=== PATIENT | male | born 1980 | race Caucasian/White ===

== ENCOUNTER 2019-10-03 15:42 | Inpatient (IN) | payer BC ==
[2019-10-03] MEDS ORDERED: ONDANSETRON 4 MG/2 ML VIAL ONE (16:28)
--- NOTE | 2019-10-03 17:35 | RAD REPORT ---
EXAM DESCRIPTION: US - Abdomen Exam Limited - 10/03/2019 5:18 pm CLINICAL HISTORY: Abdominal pain. COMPARISON: 2013 FINDINGS: The gallbladder wall is not thickened. A gallstone is not seen. A 5 millimeter echogenic structure is adherent to the gallbladder wall. No posterior shadowing seen Common bile duct was not well visualized but probably is within normal limits Liver has an increased echotexture consistent with fatty infiltration IMPRESSION: Fatty liver 5 millimeter echogenic structure within the gallbladder probably a polyp. Followup ultrasound in 1 ye ar recommended to assess stability
[2019-10-03 17:42] LABS: Absolute Lymphocytes (CBC) 1.4 K/uL (0.7-4.9); Basophils % 1.3 % (0-1.3); Hematocrit 41.3 % (39.6-49.0); Lymphocytes % 16.1 % (15.3-44.8); MPV 9.5 fL (7.6-11.3)
[2019-10-03 17:45] LABS: Protime INR 1.24
[2019-10-03 17:57] LABS: Blood Morphology Comment NOT SEEN (NOT SEEN); Platelet Estimate DECR; Urine White Blood Cell Casts OK
[2019-10-03 18:02] LABS: ALT/SGPT 149 U/L (12-78); Alkaline Phosphatase 287 U/L (45-117); BUN Blood Urea Nitrogen 8 mg/dL (7-18); Bicarbonate 27 mmol/L (21-32); Bilirubin Direct 4.9 mg/dL (0-0.2); Glucose Level 117 mg/dL (74-106); Lipase 284 U/L (73-393); Protein, Total 7.2 g/dL (6.4-8.2); Sodium Level 135 mmol/L (136-145)
[2019-10-03 18:16] LABS: Magnesium 1.9 mg/dL (1.8-2.4); Potassium 3.3 mmol/L (3.5-5.1)
[2019-10-03 18:18] LABS: AST/SGOT 357 U/L (15-37); Bilirubin Total 6.4 mg/dL (0.2-1.0)
[2019-10-03] MEDS ORDERED: NA CHLORIDE 0.9% 1,000 ML ONE (18:28)
--- NOTE | 2019-10-03 18:29 | ER ---
Nurse's Notes [facility] Name: Jareth Gordon Age: 39 yrs Sex: Male : 1980 Arrival Date: 10/03/2019 Time: 15:47 Bed 19 Private MD: Kim Elizalde K Diagnosis: Liver disease, unspecified Presentation: 10/03 15:50 Presenting complaint: Patient states: "I have the shakes, nausea, diarrhea and jl7 dizziness." x [address] Elizalde sent pt with note that states "Acute nausea/ decreased eating/ tremors/ vertigo/ jaundice/ hx of alcoholism/ please evaluate and treat in ER." Pt reports drinking 2 bottles of wine/day last drink was this morning 10 oz "to calm the shaking down.". Transition of care: patient was not received from another setting of care. Onset of symptoms was September 23, 2019. Risk Assessment: Do you want to hurt yourself or someone else? Patient reports no desire to harm self or others. Initial Sepsis Screen: Does the patient meet any 2 criteria? No. Patient's initial sepsis screen is negative. Does the patient have a suspected source of infection? No. Patient's initial sepsis screen is negative. Care prior to arrival: None. 15:50 Method Of Arrival: Ambulatory [facility] 15:50 Acuity: RICKEY 2 jl7 Historical: - Allergies: 16:01 No Known Allergies; jl7 - Home Meds: 16:01 losartan-hydrochlorothiazide Oral [Active]; Paxil 30 mg oral tab [Active]; melatonin 10 jl7 mg Oral cap [Active]; - PMHx: 16:01 Anxiety; Depression; Hypertension; Alcoholism; jl7 - PSHx: 16:01 None; jl7 - Immunization history:: Adult Immunizations not up to date. - Social history:: Smoking status: Patient uses tobacco products, chewing tobacco, Patient uses alcohol, on a daily basis. - Ebola Screening: : No symptoms or risks identified at this time. Screenin:10 Abuse screen: Denies threats or abuse. Denies injuries from another. Nutritional ca1 screening: No deficits noted. Tuberculosis screening: No symptoms or risk factors identified. Fall Risk None identified. Assessment: 16:10 General: Appears in no apparent distress. comfortable, Behavior is calm, cooperative, ca1 appropriate for age. General: Reports tremors and shaking for several days. Happened 2 years before. Pt reported he drinks 2 bottles of wine per day and he switched from hard drinks to wine. . Pain: Denies pain. Neuro: Level of Consciousness is awake, alert, obeys commands, Oriented to person, place, time, situation. Cardiovascular: Heart tones S1 S2 present Capillary refill < 3 seconds Patient's skin is warm and dry. Respiratory: Airway is patent Respiratory effort is even, unlabored, Respiratory pattern is regular, symmetrical, Breath sounds are clear bilaterally. GI: Abdomen is round non-distended, Bowel sounds present X 4 quads. Abd is soft and non tender X 4 quads. Reports nausea, vomiting. : No deficits noted. No signs and/or symptoms were reported regarding the genitourinary system. EENT: Sclera/Cornea sclerae icteric. Derm: Skin is intact, is healthy with good turgor, Skin is dry, Skin is pink, warm \\T\\ dry. Skin temperature is warm. Musculoskeletal: Circulation, motion, and sensation intact. Capillary refill < 3 seconds, Range of motion: intact in all extremities. 17:22 Reassessment: Patient appears in no apparent distress at this time. Patient is alert, ca1 oriented x 3, equal unlabored respirations, skin warm/dry/pink. Pt back from ultrasound. 18:25 Reassessment: YANG Roque notified of critical lab values AST 357 and Total Bili ss 6.4. 18:39 Reassessment: Patient appears in no apparent distress at this time. Patient is alert, ca1 oriented x 3, equal unlabored respirations, skin warm/dry/pink. 19:30 Reassessment: Patient appears in no apparent distress at this time. Patient and/or wh family updated on plan of care and expected duration. Pain level reassessed. Patient is alert, oriented x 3, equal unlabored respirations, skin warm/dry/pink. 20:40 Reassessment: Patient appears in no apparent distress at this time. No changes from previously documented assessment. Patient and/or family updated on plan of care and expected duration. Pain level reassessed. Patient is alert, oriented x 3, equal unlabored respirations, skin warm/dry/pink. MD at bedside explaining POC. Vital Signs: 16:01 BP 119 / 80; Pulse 69; Resp 17 S; Temp 98.3(O); Pulse Ox 100% on R/A; Weight 83.01 kg jl7 (R); Height 5 ft. 9 in. (175.26 cm) (R); Pain 0/10; 17:00 BP 123 / 78; Pulse 73; Resp 16 S; Pulse Ox 97% on R/A; ca1 18:00 BP 125 / 83; Pulse 64; Resp 18 S; Pulse Ox 99% on R/A; ca1 19:30 BP 124 / 78; Pulse 76; Resp 18; Pulse Ox 98% on R/A; wh 20:45 BP 121 / 69; Pulse 76; Resp 18; Pulse Ox 100% ; wh 16:01 Body Mass Index 27.02 (83.01 kg, 175.26 cm) jl7 ED Course: 15:47 Patient arrived in ED. as 15:48 Kim Elizalde MD is Private Physician. as 15:58 Triage completed. jl7 16:01 Arm band placed on right wrist. jl7 16:04 Katy Gonzalez, SAMANTHA is Primary Nurse. ca1 16:05 Joseluis Alvarez PA is PHCP. jr8 16:05 Ruel Diaz MD is Attending Physician. jr8 16:10 Patient has correct armband on for positive identification. Placed in gown. Bed in low ca1 position. Call light in reach. Side rails up X2. Pulse ox on. NIBP on. Warm blanket given. 16:10 No provider procedures requiring assistance completed. ca1 17:10 Missed attempt(s): 20 gauge in right antecubital area. Bleeding controlled, band aid ca1 applied, catheter tip intact. 17:18 US Abdomen Limited In Process Unspecified. EDMS 17:30 Initial lab(s) drawn, by ED staff, sent to lab. Inserted saline lock: 20 gauge in left ca1 antecubital area, using aseptic technique. ,using aseptic technique. by Adolph infant nanny Blood collected. 18:24 Jessica Yip MD is Hospitalizing Provider. jr8 18:40 Patient admitted, IV remains in place. ca1 Administered Medications: 17:30 Drug: Zofran 4 mg Route: IVP; Site: left antecubital; ca1 18:38 Follow up: Response: No adverse reaction; Nausea is decreased ca1 21:01 Follow up: Response: No adverse reaction; Nausea is decreased 18:38 Drug: NS 0.9% 1000 ml Route: IV; Rate: 75 ml/hr; Site: left antecubital; ca1 18:38 Follow up: IV Status: Infusion continued upon admission ca1 21:01 Follow up: Response: No adverse reaction; IV Status: Infusion continued upon admission Outcome: 18:24 Decision to Hospitalize by Provider. jr8 21:11 Admitted to Tele accompanied by tech, family with patient, via wheelchair, room 414, with chart, Report called to Jonna Quezada RN 21:11 Condition: stable 21:11 Instructed on the need for admit. 21:21 Patient left the ED. Signatures: Dispatcher [employer] EDMS Shonda Asher Shelby, RN RN Joseluis Alvarez PA PA jr8 Juancarlos Barone RN RN jl7 Cristy Bills Katy Gonzalez RN RN ca1
--- NOTE | 2019-10-03 18:30 | EDPHYS ---
Physician Documentation [facility] Name: Jareth Gordon Age: 39 yrs Sex: Male : 1980 Arrival Date: 10/03/2019 Time: 15:47 Bed 19 Private MD: Kim Elizalde K ED Physician Ruel Diaz HPI: 10/03 16:48 This 39 yrs old Male presents to ER via Ambulatory with complaints of jr8 Jaundice, Decreased Appetite, Nausea, Vertigo. 16:48 The patient presents to the emergency department with nausea, that is moderate. Onset: jr8 The symptoms/episode began/occurred gradually, 1 week(s) ago, and became worse. Possible causes: unknown. The symptoms are aggravated by food , The symptoms are alleviated by nothing. Associated signs and symptoms: Pertinent positives: Loose stools and yellowing of skin. Severity of symptoms: At their worst the symptoms were moderate in the emergency department the symptoms are unchanged. The patient has not experienced similar symptoms in the past. The patient has been recently seen by a physician: the patient's primary care provider. PCP sent patient to ED for further evaluation after finding that he had jaundiced skin. History of heavy alcoholism. Stated that he has been nauseated for past month and getting worse . Historical: - Allergies: 16:01 No Known Allergies; jl7 - Home Meds: 16:01 losartan-hydrochlorothiazide Oral [Active]; Paxil 30 mg oral tab [Active]; melatonin 10 jl7 mg Oral cap [Active]; - PMHx: 16:01 Anxiety; Depression; Hypertension; Alcoholism; jl7 - PSHx: 16:01 None; jl7 - Immunization history:: Adult Immunizations not up to date. - Social history:: Smoking status: Patient uses tobacco products, chewing tobacco, Patient uses alcohol, on a daily basis. - Ebola Screening: : No symptoms or risks identified at this time. ROS: 16:48 Eyes: Negative for injury, pain, redness, and discharge, ENT: Negative for injury, jr8 pain, and discharge, Neck: Negative for injury, pain, and swelling, Cardiovascular: Negative for chest pain, palpitations, and edema, Respiratory: Negative for shortness of breath, cough, wheezing, and pleuritic chest pain, Back: Negative for injury and pain, MS/Extremity: Negative for injury and deformity, Neuro: Negative for headache, weakness, numbness, tingling, and seizure. 16:48 Abdomen/GI: Positive for nausea and vomiting, Negative for abdominal pain, diarrhea, constipation, abdominal cramps, abdominal distension, anorexia, dysphagia, hematemesis, black/tarry stool, rectal pain, rectal bleeding, bowel incontinence, flatulence. 16:48 Skin: Positive for jaundice. Exam: 16:48 ENT: Nares patent. No nasal discharge, no septal abnormalities noted. Tympanic jr8 membranes are normal and external auditory canals are clear. Oropharynx with no redness, swelling, or masses, exudates, or evidence of obstruction, uvula midline. Mucous membranes moist. Neck: Trachea midline, no thyromegaly or masses palpated, and no cervical lymphadenopathy. Supple, full range of motion without nuchal rigidity, or vertebral point tenderness. No Meningismus. Cardiovascular: Regular rate and rhythm with a normal S1 and S2. No gallops, murmurs, or rubs. Normal PMI, no JVD. No pulse deficits. Respiratory: Lungs have equal breath sounds bilaterally, clear to auscultation and percussion. No rales, rhonchi or wheezes noted. No increased work of breathing, no retractions or nasal flaring. Abdomen/GI: Soft, non-tender, with normal bowel sounds. No distension or tympany. No guarding or rebound. No evidence of tenderness throughout. Back: No spinal tenderness. No costovertebral tenderness. Full range of motion. MS/ Extremity: Pulses equal, no cyanosis. Neurovascular intact. Full, normal range of motion. Neuro: Awake and alert, GCS 15, oriented to person, place, time, and situation. Cranial nerves II-XII grossly intact. Motor strength 5/5 in all extremities. Sensory grossly intact. Cerebellar exam normal. Normal gait. 16:48 Eyes: Periorbital structures: appear normal, Pupils: equal, round, and reactive to light and accomodation, Extraocular movements: intact throughout, Conjunctiva: normal, Corneas: are normal, Sclera: icterus, is present. 16:48 Skin: Appearance: Color: jaundiced. Vital Signs: 16:01 BP 119 / 80; Pulse 69; Resp 17 S; Temp 98.3(O); Pulse Ox 100% on R/A; Weight 83.01 kg jl7 (R); Height 5 ft. 9 in. (175.26 cm) (R); Pain 0/10; 17:00 BP 123 / 78; Pulse 73; Resp 16 S; Pulse Ox 97% on R/A; ca1 18:00 BP 125 / 83; Pulse 64; Resp 18 S; Pulse Ox 99% on R/A; ca1 19:30 BP 124 / 78; Pulse 76; Resp 18; Pulse Ox 98% on R/A; wh 20:45 BP 121 / 69; Pulse 76; Resp 18; Pulse Ox 100% ; wh 16:01 Body Mass Index 27.02 (83.01 kg, 175.26 cm) jl7 MDM: 16:05 Patient medically screened. jr8 18:24 Data reviewed: vital signs, nurses notes, lab test result(s), radiologic studies, jr8 ultrasound. Data interpreted: Pulse oximetry: on room air is 97 %. Interpretation: normal. Counseling: I had a detailed discussion with the patient and/or guardian regarding: the historical points, exam findings, and any diagnostic results supporting the discharge/admit diagnosis, lab results, radiology results, the need for further work-up and treatment in the hospital. ED course: Consulted Dr. Zarate. Wants to admit patient to trend labs and to make sure there is no acute liver process . 10/03 16:15 Order name: Basic Metabolic Panel; Complete Time: 18:23 8 10/03 16:15 Order name: CBC with Diff; Complete Time: 17:58 8 10/03 16:15 Order name: Creatinine for Radiology; Complete Time: 18:07 [facility] 10/03 16:15 Order name: Hepatic Function; Complete Time: 18:23 [facility] 10/03 16:15 Order name: Lipase; Complete Time: 18:23 8 10/03 16:15 Order name: Magnesium; Complete Time: 18:23 [facility] 10/03 16:15 Order name: US Abdomen Limited; Complete Time: 17:45 [facility] 10/03 16:15 Order name: Hepatitis Panel [facility] 10/03 16:15 Order name: Protime (+inr); Complete Time: 17:58 8 10/03 16:15 Order name: Ptt, Activated; Complete Time: 17:58 [facility] 10/03 17:58 Order name: CBC Smear Scan; Complete Time: 17:58 [facility] 10/03 18:24 Order name: AMMONIA [facility] 10/03 16:15 Order name: IV Saline Lock; Complete Time: 17:40 jr8 10/03 16:15 Order name: Labs collected and sent; Complete Time: 17:40 8 Administered Medications: 17:30 Drug: Zofran 4 mg Route: IVP; Site: left antecubital; ca1 18:38 Follow up: Response: No adverse reaction; Nausea is decreased ca1 21:01 Follow up: Response: No adverse reaction; Nausea is decreased 18:38 Drug: NS 0.9% 1000 ml Route: IV; Rate: 75 ml/hr; Site: left antecubital; ca1 18:38 Follow up: IV Status: Infusion continued upon admission ca1 21:01 Follow up: Response: No adverse reaction; IV Status: Infusion continued upon admission Disposition: 10/03/19 18:24 Hospitalization ordered by Jessica Yip for Observation. Preliminary diagnosis is Liver disease, unspecified. - Bed requested for Telemetry/MedSurg (observation). - Status is Observation. - Condition is Stable. - Problem is new. - Symptoms are unchanged. UTI on Admission? No Addendum: 10/07/2019 07:27 Co-signature as Attending Physician, Ruel Diaz MD. r n Signatures: Dispatcher [employer] [facility] Ruel Diaz MD MD rn Roszak, Josh, PA PA jr8 Brenda Hsu RN RN tl1 Juancarlos Barone RN RN jl7 Cristy Bills Katy Gonzalez RN RN ca1 Corrections: (The following items were deleted from the chart) 10/03 20:13 18:24 Hospitalization Ordered by Jessica Yip MD for Observation. Preliminary diagnosis tl1 is Liver disease, unspecified. Bed requested for Telemetry/MedSurg (observation). Status is Observation. Condition is Stable. Problem is new. Symptoms are unchanged. UTI on Admission? No. jr8 21:21 20:13 10/03/2019 18:24 Hospitalization Ordered by Jessica Yip MD for Observation. Preliminary diagnosis is Liver disease, unspecified. Bed requested for Telemetry/MedSurg (observation). Status is Observation. Condition is Stable. Problem is new. Symptoms are unchanged. UTI on Admission? No. tl1
--- NOTE | 2019-10-03 19:57 | P.HP ---
Certification for Inpatient Patient admitted to: Inpatient With expected LOS: >2 Midnights Patient will require the following post-hospital care: Rehabilitation Practitioner: I am a practitioner with admitting privileges, knowledge of patient current condition, hospital course, and medical plan of care. Services: Services provided to patient in accordance with Admission requirements found in Title 42 Section 412.3 of the Code of Federal Regulations Patient History Date of Service: 10/04/19 Reason for admission: painless jaundice History of Present Illness: pt admitted to hospitalist service - notified @194 of admission fabiola linares is 39 yoM w/ pmhx of fatty liver (x5yrs), alcoholism who presents to [facility] with 2 week hx of tremors, nausea, diarrhea. he reports s/s started 2 weeks ago, 1 week ago he noted decrease in PO intake due to nausea. he reports also chills, dark urine, decrease UOP, and unintentional weigh loss, changes in food habits. he states that he "just doesnt feel good". he went to his PCP today who noted scleral icterus and advised ER evaluation. per ER MD sign out, GI consulted and accepting of patient for further evaluation. his last drink was this AM. he reports history of stopping etoh in the past and denies sz hx. he denies similar episodes previously he denies cp, fever, sob, rock, rashes, sores, petechiae, bowel movement changes , body aches. he reports tobacco use - snuff 1 can/day x10yrs he reports etoh use - 2 bottles wine /night x 1 year Allergies No Known Allergies Allergy (Verified 10/03/19 23:27) Home Medications: Losartan/Hydrochlorothiazide [Losartan-Hctz 100-12.5 mg Tab] 1 each PO DAILY 04/17 Melatonin 10 mg PO BEDTIME 10/04/19 PARoxetine HCl [Paxil] 30 mg PO DAILY 10/04/19 - Past Medical/Surgical History -: fatty liver -: alcoholism Past Surgical History: Reviewed- Non-Contributory - Family History Mother Notes: pt states Mother is a "heavy drinker" - Social History Smoking Status: Never smoker (uses snuff (tobacco)) Alcohol use: Yes CD- Drugs: No Review of Systems General: Malaise Eyes: Unremarkable ENT: As per HPI, Unremarkable Respiratory: Unremarkable Cardiovascular: Unremarkable Gastrointestinal: Nausea, Diarrhea, As per HPI Genitourinary: Unremarkable Musculoskeletal: Unremarkable Integumentary: Unremarkable Neurological: Unremarkable Physical Examination - Physical Exam General: Alert, In no apparent distress, Oriented x3, Cooperative, Obese, Other (interactive, conversational, not ill or toxic, appears weak/tired) HEENT: PERRLA, Other (scleral icterus noted, flushed cheeks, dry mucosal membranes) Neck: Supple Respiratory: Clear to auscultation bilaterally, Normal air movement Cardiovascular: No edema, Normal pulses, Regular rate/rhythm, Normal S1 S2, No murmurs Capillary refill: >2 Seconds Gastrointestinal: Normal bowel sounds, Soft and benign, No tenderness, No rebound, No guarding, Distended Musculoskeletal: No clubbing, No swelling, No erythema, No warmth Integumentary: No rashes, No significant lesion, No warmth, No cyanosis, Other ( mild tint/yellowing of skin) Neurological: Normal strength at 5/5 x4 extr External genitalia: Deferred Rectal: Deferred - Studies Laboratory Data (last 24 hrs) 10/03/19 17:30: PT 14.5 H, INR 1.24, APTT 37.9 H 10/03/19 17:30: Creatinine 0.89 10/03/19 17:30: WBC 8.9, Hgb 14.3, Hct 41.3, Plt Count 85 L 10/03/19 17:30: Sodium 135 L, Potassium 3.3 L, BUN 8, Creatinine 0.88, Glucose 117 H, Magnesium 1.9, Total Bilirubin 6.4 H*, AST 357 H*, ALT 149 H, Alkaline Phosphatase 287 H, Lipase 284 Assessment and Plan - Plan 39yoMadmitted w/ painless jaundice/scleral icterus w/ negative US structural hepatobiliary obstruction GI consulted - dr martínez obtain hepatitis panel ordered daily labs w/ coags and electrolytes trend LFTs and monitor UOP/Cr. AST to ALT ration > 2:1 thus confirming etoh induced liver dz and low albumin determines chronic nature of liver disease etoh dependence/withdrawal counsoled on withdrawal etoh withdrawal protocol w/ CIWA scoring/ativan and banana bag, thiamine, MVI tobacco dependence nicotine patch counsoled on cessation SCD for DVT ppx Plan to discharge in: 48 Hours - Advance Directives Does patient have a Living Will: No Does patient have a Durable POA for Healthcare: No - Code Status/Comfort Care Code Status Assessed: Yes Code Status: Full Code
[2019-10-03] MEDS ORDERED: ONDANSETRON 4 MG/2 ML VIAL IV PRN (20:06)
[2019-10-03] MEDS ORDERED: NA CHLORIDE 0.9% 1,000 ML IV SCH (22:09)
[2019-10-03] MEDS: LORAZEPAM 0.5 MG TABLET PO PRN (23:41)
[2019-10-04] MEDS: LORAZEPAM 0.5 MG TABLET PO PRN ×2 (01:55→08:50)
[2019-10-04 02:03] LABS: Barbiturates NEGATIVE (NEGATIVE); Benzodiazepines NEGATIVE (NEGATIVE); Cocaine NEGATIVE (NEGATIVE); METHAMPHETAM NEGATIVE (NEGATIVE); Methadone NEGATIVE (NEGATIVE); Opiates NEGATIVE (NEGATIVE); Phencyclidine NEGATIVE (NEGATIVE); THC Cannibis NEGATIVE (NEGATIVE)
[2019-10-04 06:08] LABS: Absolute Lymphocytes (CBC) 3.2 K/uL (0.7-4.9); Basophils % 0.5 % (0-1.3); Hematocrit 34.8 % (39.6-49.0); Lymphocytes % 44.3 % (15.3-44.8); MPV 9.2 fL (7.6-11.3); Protime INR 1.29; RBC Red Blood Cell Count 3.65 M/uL (4.33-5.43)
[2019-10-04 06:33] LABS: ALT/SGPT 114 U/L (12-78); AST/SGOT 297 U/L (15-37); Albumin 2.5 g/dL (3.4-5.0); Alkaline Phosphatase 255 U/L (45-117); BUN Blood Urea Nitrogen 8 mg/dL (7-18); Bicarbonate 29 mmol/L (21-32); Glucose Level 106 mg/dL (74-106); HDL Cholesterol 15 mg/dL (40-60); LDL Cholesterol, Calculated ND (<130); Magnesium 1.7 mg/dL (1.8-2.4); Potassium 3.1 mmol/L (3.5-5.1); Sodium Level 134 mmol/L (136-145)
[2019-10-04 06:39] LABS: Bilirubin Total 6.5 mg/dL (0.2-1.0)
[2019-10-04 06:49] LABS: LDL, Direct 144 mg/dL (100-129)
[2019-10-04] MEDS: THIAMINE HCL 100 MG TABLET PO SCH (08:31)
[2019-10-04] MEDS: FOLIC ACID 1 MG TABLET PO SCH (08:32)
[2019-10-04] MEDS: NICOTINE 14 MG/PAT TD SCH (08:32)
[2019-10-04] MEDS: MULTIVITAMIN TAB PO SCH (08:32)
[2019-10-04 09:36] LABS: Anisocytosis 1+; Blood Morphology Comment NOTED (NOT SEEN); Platelet Estimate DECR; Target Cells 2+; Urine White Blood Cell Casts OK
[2019-10-04] MEDS ORDERED: MAGNESIUM SULFATE 1 gm IVPB 1 GM/100 ML BAG IV ONE (10:23)
[2019-10-04] MEDS ORDERED: POTASSIUM 25 MEQ EFFERV TAB PO ONE (10:27)
--- NOTE | 2019-10-04 10:47 | P.PN ---
Subjective Date of Service: 10/04/19 Chief Complaint: painless jaundice Subjective: No new changes (seen,feel fine - improved nausea now , tolerating po today) Review of Systems 10-point ROS is otherwise unremarkable Physical Examination - Vital Signs Temperature: 97.4 F Blood Pressure: 123/55 Pulse: 74 Respirations: 18 Pulse Ox (%): 98 - Physical Exam General: Alert, In no apparent distress, Oriented x3 HEENT: Atraumatic, Normocephalic, Scleral icterus Neck: Supple, 2+ carotid pulse no bruit Respiratory: Clear to auscultation bilaterally, Normal air movement Cardiovascular: No edema, Normal pulses Gastrointestinal: Normal bowel sounds, W/out hepatosplenomegaly, No tenderness Integumentary: No rashes, No breakdown Neurological: Normal gait, Normal speech, Normal strength at 5/5 x4 extr - Studies Laboratory Data (last 24 hrs) 10/03/19 17:30: PT 14.5 H, INR 1.24, APTT 37.9 H 10/03/19 17:30: Creatinine 0.89 10/03/19 17:30: WBC 8.9, Hgb 14.3, Hct 41.3, Plt Count 85 L 10/03/19 17:30: Sodium 135 L, Potassium 3.3 L, BUN 8, Creatinine 0.88, Glucose 117 H, Magnesium 1.9, Total Bilirubin 6.4 H*, AST 357 H*, ALT 149 H, Alkaline Phosphatase 287 H, Lipase 284 10/03/19 18:34: Ammonia 15 L 10/03/19 17:30: PT 14.5 H, INR 1.24, APTT 37.9 H 10/03/19 17:30: Creatinine 0.89 10/03/19 17:30: WBC 8.9, RBC 4.30 L, Hgb 14.3, Hct 41.3, MCV 95.9, MCH 33.1, MCHC 34.5, RDW 16.2 H, Plt Count 85 L, MPV 9.5, Neutrophils % 71.7, Lymphocytes % 16.1, Monocytes % 10.9, Eosinophils % 0.0, Basophils % 1.3, Absolute Neutrophils 6.4, Absolute Lymphocytes 1.4, Absolute Monocytes 1.0, Absolute Eosinophils 0.0, Absolute Basophils 0.1, Morphology Comment Not seen 10/03/19 17:30: Sodium 135 L, Potassium 3.3 L, Chloride 95 L, Carbon Dioxide 27 , BUN 8, Creatinine 0.88, Estimated GFR > 90, Glucose 117 H, Calcium 8.5, Magnesium 1.9, Total Bilirubin 6.4 H*, Direct Bilirubin 4.9 H, AST 357 H*, ALT 149 H, Alkaline Phosphatase 287 H, Serum Total Protein 7.2, Albumin 3.0 L, Globulin 4.2 H, Albumin/Globulin Ratio 0.7 L, Lipase 284 Medications List Reviewed: Yes Assessment & Plan - Problems (Diagnosis) (1) LFTs abnormal Current Visit: Yes Status: Acute (2) Hyperbilirubinemia Current Visit: Yes Status: Acute (3) Direct hyperbilirubinemia Current Visit: Yes Status: Acute (4) Alcohol abuse Current Visit: Yes Status: Acute Discharge Plan: Home Plan to discharge in: 72 Hours - Code Status/Comfort Care Code Status Assessed: Yes Code Status: Full Code Physician Review Additional Text: # Jaundice with elevated lft- improving lfts now , trending down liver enzymes - still elevated bilirubin - may be due to alcoholoic hepatitis - c/w to avoid alcohol - will obtain ct abdomen to r/o pancreatic mass with obstruction now - will consult GI for possible ERCP if needed # Tob use- on nicotine patch # Chronic Etoh abuse - cessation advised , patient agreeable , c/w Ativan protocol for withdrawals - will consult case mgt for help with outpt programs # DVT prop - sc heparin # Advance directive - full code
[2019-10-04] MEDS: Ringers Lactate 1,000 ML IV SCH ×2 (11:49→19:00)
--- NOTE | 2019-10-04 12:45 | RAD REPORT ---
EXAM DESCRIPTION: CT - Abdomen W/Wo Contrast - 10/04/2019 11:28 am CLINICAL HISTORY: jaundice , r/p pancreatic mass, abdominal pain COMPARISON: Ultrasound October 03, 2019 TECHNIQUE: Biphasic, helical CT imaging of the abdomen and pelvis was performed following oral and 1 00 ml non-ionic IV contrast. A 3 millimeter slice thickness was utilized. Pre IV contrast imaging was performed along with 10 minutes delayed imaging. All CT scans are performed using dose optimization technique as appropriate and may include automated exposure control or mA/KV adjustment according to patient size. FINDINGS: No suspicious findings in the lung bases. Liver is prominent in size. Patient has a pronounced fatty infiltration pattern with geographic varia bility in the severity. Numerous additional punctate areas of more diminished attenuation scattered t hroughout the liver. No focal prominent lesion identifiable. There is no portal vein thrombus. No splenomegaly or focal splenic finding. Gallbladder is contracted. Punctate 1- 2 millimeter stones are seen near the cystic duct. No biliary tree dilatation. No duct stone identifiable. Pancreatic parenchyma is homogeneous on all image acquisitions. No pancreatic mass. No peripancreatic stranding or pancreatic duct dilatation. Symmetric renal function is seen with no hydronephrosis or suspicious renal mass. No pyelonephritis o r acute renal parenchymal process. Contracted urinary bladder shows no suspicious finding. Prostate g land and seminal vesicles within normal limits. No dilated bowel loops or bowel wall thickening. No free air, free fluid or inflammatory stranding. N o hernia, mass or bulky lymphadenopathy. Appendix is normal. No suspicious bony findings. IMPRESSION: Negative examination of the pancreas. Pronounced fatty infiltration pattern in the liver with geographic variability in severity. Patient also has numerous round low-density areas throughout the hepatic parenchyma relatively similar in siz e. Liver parenchymal findings have the appearance of biliary hamartomas which do not generally cause jau ndice. Caroli disease usually has more pronounced cystic areas. Numerous very small metastatic foci w ould also be unlikely given the absence of enhancement or more pronounced lesions size. There are no other abnormalities that would raise likelihood of metastatic disease. A small CT occult duct stone would be possible. The CT seen gallstones are very small and would proba frederic be occult to MRCP imaging.
[2019-10-04] MEDS: LORazepam 2 MG/ML VIAL IV PRN (19:43)
[2019-10-04] MEDS ORDERED: FOLIC ACID 1 MG, MULTIVITAMINS INJ 10 ML, THIAMINE HCL 100 MG in NA CHLORIDE 0.9% 1,000 ML IV ONE (20:06)
[2019-10-05] MEDS: LORAZEPAM 0.5 MG TABLET PO PRN ×2 (02:07→19:53)
[2019-10-05] MEDS: Ringers Lactate 1,000 ML IV SCH ×2 (02:16→08:59)
[2019-10-05 05:35] LABS: Lymphocytes % 17.6 % (15.3-44.8); MPV 9.4 fL (7.6-11.3)
[2019-10-05 05:45] LABS: Protime INR 1.36
[2019-10-05 05:57] LABS: Albumin 2.4 g/dL (3.4-5.0); Carcinoembryonic Antigen 2.2 ng/mL (0-5.0); Potassium 3.2 mmol/L (3.5-5.1); Protein, Total 5.8 g/dL (6.4-8.2)
[2019-10-05 05:59] LABS: Bilirubin Total 7.8 mg/dL (0.2-1.0)
[2019-10-05] MEDS: MULTIVITAMIN TAB PO SCH (08:41)
[2019-10-05] MEDS: FOLIC ACID 1 MG TABLET PO SCH (08:41)
[2019-10-05] MEDS: THIAMINE HCL 100 MG TABLET PO SCH (08:41)
[2019-10-05] MEDS: NICOTINE 14 MG/PAT TD SCH (08:41)
[2019-10-05] MEDS: LORazepam 2 MG/ML VIAL IV PRN (08:42)
[2019-10-05 10:08] LABS: Blood Morphology Comment NOT SEEN (NOT SEEN); Platelet Estimate DECR; Urine White Blood Cell Casts OK
[2019-10-05 11:20] LABS: Absolute Lymphocytes (CBC) 1.1 K/uL (0.7-4.9); Basophils % 0.8 % (0-1.3); Hematocrit 33.6 % (39.6-49.0); Lymphocytes % 18.4 % (15.3-44.8); MPV 10.2 fL (7.6-11.3); RBC Red Blood Cell Count 3.47 M/uL (4.33-5.43)
[2019-10-05] MEDS: POTASSIUM 25 MEQ EFFERV TAB PO SCH ×2 (11:38→19:53)
--- NOTE | 2019-10-05 11:48 | P.PN ---
Subjective Date of Service: 10/05/19 Chief Complaint: painless jaundice Subjective: No new changes (tolerating po well , no abdominal pain , anxious to go home soon - no reported agitation or tremors) Review of Systems 10-point ROS is otherwise unremarkable Physical Examination - Vital Signs Temperature: 98.9 F Blood Pressure: 136/76 Pulse: 72 Respirations: 16 Pulse Ox (%): 97 - Physical Exam General: Alert, In no apparent distress, Oriented x3 HEENT: Atraumatic, PERRLA, Mucous membr. moist/pink, Scleral icterus Neck: Supple, 2+ carotid pulse no bruit, JVD not distended Respiratory: Clear to auscultation bilaterally, Normal air movement Cardiovascular: Normal pulses, Regular rate/rhythm, Normal S1 S2 Gastrointestinal: Normal bowel sounds, Soft and benign Neurological: Normal gait, Normal speech - Studies Laboratory Last Values WBC 6.2 K/uL (4.3-10.9) 10/05/19 11:01 RBC 3.47 M/uL (4.33-5.43) L 10/05/19 11:01 Hgb 11.7 g/dL (13.6-17.9) L 10/05/19 11:01 Hct 33.6 % (39.6-49.0) L 10/05/19 11:01 MCV 96.8 fL (80-100) 10/05/19 11:01 MCH 33.6 pg (27.0-35.0) 10/05/19 11:01 MCHC 34.7 g/dL (32.0-36.0) 10/05/19 11:01 RDW 16.2 % (12.1-15.2) H 10/05/19 11:01 Plt Count 45 K/uL (152-406) L* 10/05/19 11:01 MPV 10.2 fL (7.6-11.3) 10/05/19 11:01 Neutrophils % 70.7 % (41.7-73.7) 10/05/19 11:01 Lymphocytes % 18.4 % (15.3-44.8) 10/05/19 11:01 Monocytes % 9.2 % (3.3-12.3) 10/05/19 11:01 Eosinophils % 0.9 % (0-4.4) 10/05/19 11:01 Basophils % 0.8 % (0-1.3) 10/05/19 11:01 Absolute Neutrophils 4.4 K/uL (1.8-8.0) 10/05/19 11:01 Absolute Lymphocytes 1.1 K/uL (0.7-4.9) 10/05/19 11:01 Absolute Monocytes 0.6 K/uL (0.1-1.3) 10/05/19 11:01 Absolute Eosinophils 0.1 K/uL (0-0.5) 10/05/19 11:01 Absolute Basophils 0.1 K/uL (0-0.5) 10/05/19 11:01 Anisocytosis 1+ 10/04/19 05:47 Target Cells 2+ 10/04/19 05:47 Morphology Comment Not seen (NOT SEEN) 10/05/19 05:14 PT 15.9 SECONDS (9.5-12.5) H 10/05/19 05:14 INR 1.36 10/05/19 05:14 APTT 36.5 SECONDS (24.3-36.9) 10/05/19 05:14 Sodium 138 mmol/L (136-145) 10/05/19 05:14 Potassium 3.2 mmol/L (3.5-5.1) L 10/05/19 05:14 Chloride 103 mmol/L (98-107) 10/05/19 05:14 Carbon Dioxide 31 mmol/L (21-32) 10/05/19 05:14 BUN 6 mg/dL (7-18) L 10/05/19 05:14 Creatinine 0.95 mg/dL (0.55-1.3) 10/05/19 05:14 Estimated GFR 87 mL/min (=/>90) L 10/05/19 05:14 Glucose 155 mg/dL (74-106) H 10/05/19 05:14 Hemoglobin A1c 6.3 % (4.2-6.3) 10/04/19 05:47 Calcium 8.0 mg/dL (8.5-10.1) L 10/05/19 05:14 Magnesium 2.0 mg/dL (1.8-2.4) 10/05/19 05:14 Total Bilirubin 7.8 mg/dL (0.2-1.0) H* 10/05/19 05:14 Direct Bilirubin 4.9 mg/dL (0-0.2) H 10/03/19 17:30 AST 230 U/L (15-37) H 10/05/19 05:14 ALT 100 U/L (12-78) H 10/05/19 05:14 Alkaline Phosphatase 236 U/L (45-117) H 10/05/19 05:14 Ammonia 15 umol/L (19-54) L 10/03/19 18:34 Serum Total Protein 5.8 g/dL (6.4-8.2) L 10/05/19 05:14 Albumin 2.4 g/dL (3.4-5.0) L 10/05/19 05:14 Globulin 3.4 g/dL (2.3-3.5) 10/05/19 05:14 Albumin/Globulin Ratio 0.7 (1.1-1.8) L 10/05/19 05:14 Triglycerides 454 mg/dL (<150) H 10/04/19 05:47 Cholesterol 238 mg/dL (<200) H 10/04/19 05:47 LDL Cholesterol Direct 144 mg/dL (100-129) H 10/04/19 05:47 LDL Cholesterol, Calc ND 10/04/19 05:47 HDL Cholesterol 15 mg/dL (40-60) L 10/04/19 05:47 Cholesterol/HDL Ratio 15.87 10/04/19 05:47 Lipase 284 U/L (73-393) 10/03/19 17:30 Carcinoembryonic Ag 2.2 ng/mL (0-5.0) 10/05/19 05:14 TSH 3.270 uIU/mL (0.360-3.740) 10/04/19 05:47 Opiates Screen Negative (NEGATIVE) 10/04/19 00:12 Methadone Screen Negative (NEGATIVE) 10/04/19 00:12 Ur Barbiturates Screen Negative (NEGATIVE) 10/04/19 00:12 Ur Phencyclidine Scrn Negative (NEGATIVE) 10/04/19 00:12 Amphetamines Screen Negative (NEGATIVE) 10/04/19 00:12 Benzodiazepines Screen Negative (NEGATIVE) 10/04/19 00:12 Cocaine Screen Negative (NEGATIVE) 10/04/19 00:12 Ur THC Screen Negative (NEGATIVE) 10/04/19 00:12 Medications List Reviewed: Yes Assessment & Plan - Problems (Diagnosis) (1) LFTs abnormal Current Visit: Yes Status: Acute (2) Hyperbilirubinemia Current Visit: Yes Status: Acute (3) Direct hyperbilirubinemia Current Visit: Yes Status: Acute (4) Alcohol abuse Current Visit: Yes Status: Acute Discharge Plan: Home Plan to discharge in: 48 Hours Physician Review: Patient Assessed, Agree with Above Assessment and Plan Physician Review Additional Text: # Jaundice with elevated lft- still rising bilirubin -CT neg for pancreatic lesion -awaiting GI eval 10/04-improving lfts now , trending down liver enzymes - still elevated bilirubin - may be due to alcoholoic hepatitis - c/w to avoid alcohol - will obtain ct abdomen to r/o pancreatic mass with obstruction now - will consult GI for possible ERCP if needed # Tobacco use- c/w on nicotine patch # Chronic Etoh abuse -no withdrawals symptoms yet , c/w prn ativan 10/04- cessation advised , patient agreeable , c/w Ativan protocol for withdrawals - will consult case mgt for help with outpt programs # Hypokalemia - will replete # Thrombocytopenia -trending down to 45 , likely due to consumptive coagulopathy -follow trend # DVT prop - sc heparin # Advance directive - full code Time Spent Managing Pts Care (In Minutes): 35
[2019-10-05] MEDS ORDERED: ACETYLCYST 6,000 MG/30 ML VIAL PO ONE (17:00)
[2019-10-05] MEDS: ACETYLCYST 6,000 MG/30 ML VIAL PO SCH ×2 (17:47→19:53)
[2019-10-06] MEDS: ACETYLCYST 6,000 MG/30 ML VIAL PO SCH ×3 (00:08→21:21)
[2019-10-06] MEDS: MELATONIN 5 MG TABLET PO SCH ×2 (00:08→21:05)
[2019-10-06 06:36] LABS: ALT/SGPT 84 U/L (12-78); AST/SGOT 154 U/L (15-37); Albumin 2.2 g/dL (3.4-5.0); Alkaline Phosphatase 177 U/L (45-117); BUN Blood Urea Nitrogen 5 mg/dL (7-18); Bicarbonate 27 mmol/L (21-32); Glucose Level 121 mg/dL (74-106); Potassium 3.2 mmol/L (3.5-5.1); Protein, Total 5.7 g/dL (6.4-8.2); Sodium Level 138 mmol/L (136-145)
[2019-10-06 07:03] LABS: Bilirubin Total 8.3 mg/dL (0.2-1.0)
[2019-10-06] MEDS: PARoxetine HCl 10 MG TAB PO SCH (07:56)
[2019-10-06] MEDS: THIAMINE HCL 100 MG TABLET PO SCH (07:57)
[2019-10-06] MEDS: FOLIC ACID 1 MG TABLET PO SCH (07:57)
[2019-10-06] MEDS: MULTIVITAMIN TAB PO SCH (07:57)
[2019-10-06] MEDS: POTASSIUM 25 MEQ EFFERV TAB PO SCH ×2 (07:57→21:05)
[2019-10-06] MEDS: NICOTINE 14 MG/PAT TD SCH (07:57)
[2019-10-06] MEDS ORDERED: HOME MED 1 EA UNK (Paroxetine Hcl [Paxil] 30 MG) PO SCH (09:00)
--- NOTE | 2019-10-06 11:24 | P.PN ---
Subjective Date of Service: 10/06/19 Chief Complaint: painless jaundice Subjective: No new changes, Tolerating diet Review of Systems 10-point ROS is otherwise unremarkable Physical Examination - Vital Signs Temperature: 99.6 F Blood Pressure: 133/86 Pulse: 72 Respirations: 20 Pulse Ox (%): 97 - Physical Exam General: Alert, In no apparent distress, Oriented x3 HEENT: Atraumatic, PERRLA, Scleral icterus Neck: Supple, 2+ carotid pulse no bruit Respiratory: Clear to auscultation bilaterally, Normal air movement Cardiovascular: No edema, Normal pulses, Regular rate/rhythm, Normal S1 S2 Gastrointestinal: Normal bowel sounds, Soft and benign, No tenderness Integumentary: No rashes, No breakdown External genitalia: No edema, No lesions - Studies Laboratory Last Values WBC 6.2 K/uL (4.3-10.9) 10/05/19 11:01 RBC 3.47 M/uL (4.33-5.43) L 10/05/19 11:01 Hgb 11.7 g/dL (13.6-17.9) L 10/05/19 11:01 Hct 33.6 % (39.6-49.0) L 10/05/19 11:01 MCV 96.8 fL (80-100) 10/05/19 11:01 MCH 33.6 pg (27.0-35.0) 10/05/19 11:01 MCHC 34.7 g/dL (32.0-36.0) 10/05/19 11:01 RDW 16.2 % (12.1-15.2) H 10/05/19 11:01 Plt Count 45 K/uL (152-406) L* 10/05/19 11:01 MPV 10.2 fL (7.6-11.3) 10/05/19 11:01 Neutrophils % 70.7 % (41.7-73.7) 10/05/19 11:01 Lymphocytes % 18.4 % (15.3-44.8) 10/05/19 11:01 Monocytes % 9.2 % (3.3-12.3) 10/05/19 11:01 Eosinophils % 0.9 % (0-4.4) 10/05/19 11:01 Basophils % 0.8 % (0-1.3) 10/05/19 11:01 Absolute Neutrophils 4.4 K/uL (1.8-8.0) 10/05/19 11:01 Absolute Lymphocytes 1.1 K/uL (0.7-4.9) 10/05/19 11:01 Absolute Monocytes 0.6 K/uL (0.1-1.3) 10/05/19 11:01 Absolute Eosinophils 0.1 K/uL (0-0.5) 10/05/19 11:01 Absolute Basophils 0.1 K/uL (0-0.5) 10/05/19 11:01 Anisocytosis 1+ 10/04/19 05:47 Target Cells 2+ 10/04/19 05:47 Morphology Comment Not seen (NOT SEEN) 10/05/19 05:14 PT 15.9 SECONDS (9.5-12.5) H 10/05/19 05:14 INR 1.36 10/05/19 05:14 APTT 36.5 SECONDS (24.3-36.9) 10/05/19 05:14 Sodium 138 mmol/L (136-145) 10/06/19 05:01 Potassium 3.2 mmol/L (3.5-5.1) L 10/06/19 05:01 Chloride 102 mmol/L (98-107) 10/06/19 05:01 Carbon Dioxide 27 mmol/L (21-32) 10/06/19 05:01 BUN 5 mg/dL (7-18) L 10/06/19 05:01 Creatinine 0.76 mg/dL (0.55-1.3) 10/06/19 05:01 Estimated GFR > 90 mL/min (=/>90) 10/06/19 05:01 Glucose 121 mg/dL (74-106) H 10/06/19 05:01 Hemoglobin A1c 6.3 % (4.2-6.3) 10/04/19 05:47 Calcium 8.4 mg/dL (8.5-10.1) L 10/06/19 05:01 Magnesium 2.0 mg/dL (1.8-2.4) 10/05/19 05:14 Total Bilirubin 8.3 mg/dL (0.2-1.0) H* 10/06/19 05:01 Direct Bilirubin 4.9 mg/dL (0-0.2) H 10/03/19 17:30 AST 154 U/L (15-37) H 10/06/19 05:01 ALT 84 U/L (12-78) H 10/06/19 05:01 Alkaline Phosphatase 177 U/L (45-117) H 10/06/19 05:01 Ammonia 15 umol/L (19-54) L 10/03/19 18:34 Serum Total Protein 5.7 g/dL (6.4-8.2) L 10/06/19 05:01 Albumin 2.2 g/dL (3.4-5.0) L 10/06/19 05:01 Globulin 3.5 g/dL (2.3-3.5) 10/06/19 05:01 Albumin/Globulin Ratio 0.6 (1.1-1.8) L 10/06/19 05:01 Triglycerides 454 mg/dL (<150) H 10/04/19 05:47 Cholesterol 238 mg/dL (<200) H 10/04/19 05:47 LDL Cholesterol Direct 144 mg/dL (100-129) H 10/04/19 05:47 LDL Cholesterol, Calc ND 10/04/19 05:47 HDL Cholesterol 15 mg/dL (40-60) L 10/04/19 05:47 Cholesterol/HDL Ratio 15.87 10/04/19 05:47 Lipase 284 U/L (73-393) 10/03/19 17:30 Carcinoembryonic Ag 2.2 ng/mL (0-5.0) 10/05/19 05:14 TSH 3.270 uIU/mL (0.360-3.740) 10/04/19 05:47 Opiates Screen Negative (NEGATIVE) 10/04/19 00:12 Methadone Screen Negative (NEGATIVE) 10/04/19 00:12 Acetaminophen 12.4 ug/mL (10.0-30.0) 10/05/19 14:40 Ur Barbiturates Screen Negative (NEGATIVE) 10/04/19 00:12 Ur Phencyclidine Scrn Negative (NEGATIVE) 10/04/19 00:12 Amphetamines Screen Negative (NEGATIVE) 10/04/19 00:12 Benzodiazepines Screen Negative (NEGATIVE) 10/04/19 00:12 Cocaine Screen Negative (NEGATIVE) 10/04/19 00:12 Ur THC Screen Negative (NEGATIVE) 10/04/19 00:12 Medications List Reviewed: Yes Assessment & Plan - Problems (Diagnosis) (1) LFTs abnormal Current Visit: Yes Status: Acute (2) Hyperbilirubinemia Current Visit: Yes Status: Acute (3) Direct hyperbilirubinemia Current Visit: Yes Status: Acute (4) Alcohol abuse Current Visit: Yes Status: Acute Physician Review: Patient Assessed, Agree with Above Assessment and Plan Physician Review Additional Text: # Jaundice with elevated lft- still rising bilirubin to 8.3 but lfts improving - follow GI plan , may need possible ERCP 10/04-CT neg for pancreatic lesion -awaiting GI eval 10/04-improving lfts now , trending down liver enzymes - still elevated bilirubin - may be due to alcoholic hepatitis - c/w to avoid alcohol - will obtain ct abdomen to r/o pancreatic mass with obstruction now - will consult GI for possible ERCP if needed # Tobacco use- c/w on nicotine patch # Chronic Etoh abuse -no withdrawals symptoms now , c/w ativan prn - follow case mgt for help with outpt programs # Hypokalemia - will replete again today - follow mg in am # Thrombocytopenia -follow repeat - prior trending down to 45 , likely due to consumptive coagulopathy -follow trend # DVT prop - sc heparin # Advance directive - full code
[2019-10-06] MEDS ORDERED: Magnesium Sulfate 2gm IVPB 2 G/50 ML BAG IV ONE (12:14)
[2019-10-06] MEDS ORDERED: POTASSIUM 25 MEQ EFFERV TAB PO ONE (13:00)
[2019-10-06] MEDS ORDERED: ACETYLCYST 20% 800 MG/4 ML VIAL PO SCH (20:00)
--- NOTE | 2019-10-06 20:31 | P.PN ---
Subjective Date of Service: 10/06/19 Chief Complaint: painless jaundice Subjective: New changes (Feels better but more jaundiced. Probable cholestasis from EtOH hepatitis with Maddrey discriminant function at 21.6 (too low for steroid therapy). Tylenol present on blood test but not at toxic levels though days late from onset of symptoms with EtOH. Other liver chemistries all improved on po Mucomyst overnight.) Review of Systems 10-point ROS is otherwise unremarkable General: Weakness (improved) ENT: Other (Jaundice) Physical Examination - Vital Signs Temperature: 96.8 F Blood Pressure: 123/68 Pulse: 75 Respirations: 18 Pulse Ox (%): 96 - Physical Exam General: Alert, In no apparent distress, Oriented x3, Cooperative HEENT: Atraumatic, Normocephalic, PERRLA, EOMI Neck: Supple Respiratory: Normal air movement Cardiovascular: Normal pulses Gastrointestinal: Soft and benign, No tenderness, No rebound, No guarding Neurological: Normal speech, Normal strength at 5/5 x4 extr - Studies Medications List Reviewed: Yes Assessment And Plan - Current Problems (Diagnosis) (1) Acute alcoholic hepatitis Current Visit: Yes Status: Acute (2) Liver failure Current Visit: Yes Status: Acute (3) Jaundice Current Visit: Yes Status: Acute (4) Alcohol abuse Current Visit: Yes Status: Acute (5) Hyperbilirubinemia Current Visit: Yes Status: Acute (6) LFTs abnormal Current Visit: Yes Status: Acute - Plan REC: 1) complete Mucomyst 2) monitor labs 3) await viral hepatitis panel 4) probable discharge tomorrow with close GI clinic follow-up 5) AA on discharge and consider counseling / rehab unit Physician Review: Patient Assessed, Agree with Above Assessment and Plan Physician Review Additional Text: # Jaundice with elevated lft- still rising bilirubin to 8.3 but lfts improving - follow GI plan , may need possible ERCP 10/04-CT neg for pancreatic lesion -awaiting GI eval 10/04-improving lfts now , trending down liver enzymes - still elevated bilirubin - may be due to alcoholic hepatitis - c/w to avoid alcohol - will obtain ct abdomen to r/o pancreatic mass with obstruction now - will consult GI for possible ERCP if needed # Tobacco use- c/w on nicotine patch # Chronic Etoh abuse -no withdrawals symptoms now , c/w ativan prn - follow case mgt for help with outpt programs # Hypokalemia - will replete again today - follow mg in am # Thrombocytopenia -follow repeat - prior trending down to 45 , likely due to consumptive coagulopathy -follow trend # DVT prop - sc heparin # Advance directive - full code
[2019-10-06] MEDS ORDERED: ACETYLCYST 6,000 MG/30 ML VIAL ONE (21:01)
[2019-10-07 02:03] VITALS: BMI 27.1
[2019-10-07] MEDS: ACETYLCYST 6,000 MG/30 ML VIAL PO SCH ×4 (02:07→13:56)
[2019-10-07 04:31] LABS: Absolute Lymphocytes (CBC) 1.4 K/uL (0.7-4.9); Basophils % 0.8 % (0-1.3); Hematocrit 35.1 % (39.6-49.0); Lymphocytes % 18.5 % (15.3-44.8); MPV 9.9 fL (7.6-11.3); RBC Red Blood Cell Count 3.64 M/uL (4.33-5.43)
[2019-10-07 04:47] LABS: Protime INR 1.48
[2019-10-07 05:03] LABS: ALT/SGPT 78 U/L (12-78); AST/SGOT 125 U/L (15-37); Albumin 2.5 g/dL (3.4-5.0); Alkaline Phosphatase 204 U/L (45-117); BUN Blood Urea Nitrogen 6 mg/dL (7-18); Bicarbonate 29 mmol/L (21-32); Bilirubin Direct 6.9 mg/dL (0-0.2); Glucose Level 105 mg/dL (74-106); Magnesium 2.1 mg/dL (1.8-2.4); Potassium 3.4 mmol/L (3.5-5.1); Protein, Total 6.5 g/dL (6.4-8.2); Sodium Level 138 mmol/L (136-145)
[2019-10-07 05:09] LABS: Bilirubin Total 9.3 mg/dL (0.2-1.0)
[2019-10-07] MEDS: POTASSIUM 25 MEQ EFFERV TAB PO SCH (09:30)
[2019-10-07] MEDS: FOLIC ACID 1 MG TABLET PO SCH (09:31)
[2019-10-07] MEDS: MULTIVITAMIN TAB PO SCH (09:31)
[2019-10-07] MEDS: PARoxetine HCl 10 MG TAB PO SCH (09:31)
[2019-10-07] MEDS: THIAMINE HCL 100 MG TABLET PO SCH (09:31)
[2019-10-07] MEDS: NICOTINE 14 MG/PAT TD SCH (09:32)
--- NOTE | 2019-10-07 11:17 | RAD REPORT ---
EXAM DESCRIPTION: IUDGafewzhizbjjy04/9/2019 9:16 am CLINICAL HISTORY: Abdominal pain/vomiting/ COMPARISON: October 04, 2019 CT TECHNIQUE: Magnetic resonance cholangiogram was performed.3D MIP reconstruction performed FINDINGS: A filling defect within the gallbladder is not seen The biliary tree is normal caliber without a filling defect. Pancreatic duct is normal caliber T2 weighted sequences demonstrate sub centimeter areas of low signal scattered throughout most lobes IMPRESSION: Unremarkable MRCP Innumerable small areas of low signal on T2 weighted sequences scattered throughout the liver may ind icate regenerating or dysplastic nodules
[2019-10-07 12:29] VITALS: O2SAT 96
[2019-10-07 12:41] VITALS: BP 121/79; TEMP 98.5
--- NOTE | 2019-10-07 14:39 | P.PN ---
Subjective Date of Service: 10/07/19 Chief Complaint: painless jaundice Subjective: No new changes, No C/O voiced Review of Systems 10-point ROS is otherwise unremarkable Physical Examination - Vital Signs Temperature: 98.5 F Blood Pressure: 121/79 Pulse: 74 Respirations: 18 Pulse Ox (%): 96 - Physical Exam General: Alert, In no apparent distress HEENT: PERRLA, Scleral icterus Neck: 2+ carotid pulse no bruit, JVD not distended Cardiovascular: No edema, Normal pulses, Normal S1 S2 Gastrointestinal: Normal bowel sounds, Soft and benign Neurological: Normal gait, Normal speech - Studies Medications List Reviewed: Yes Assessment & Plan - Problems (Diagnosis) (1) LFTs abnormal Current Visit: Yes Status: Acute (2) Hyperbilirubinemia Current Visit: Yes Status: Acute (3) Direct hyperbilirubinemia Current Visit: Yes Status: Acute (4) Alcohol abuse Current Visit: Yes Status: Acute Physician Review: Patient Assessed, Agree with Above Assessment and Plan Physician Review Additional Text: -complete mycomyst dosage - MRCP neg for gallstones -still rising bilirubin - follow GI as outpt after mucomyst doses complete # Jaundice with elevated lft- still rising bilirubin to 8.3 but lfts improving - follow GI plan , may need possible ERCP 10/04-CT neg for pancreatic lesion -awaiting GI eval 10/04-improving lfts now , trending down liver enzymes - still elevated bilirubin - may be due to alcoholic hepatitis - c/w to avoid alcohol - will obtain ct abdomen to r/o pancreatic mass with obstruction now - will consult GI for possible ERCP if needed # Tobacco use- c/w on nicotine patch # Chronic Etoh abuse -no withdrawals symptoms now , c/w ativan prn - follow case mgt for help with outpt programs # Hypokalemia - will replete again today - follow mg in am # Thrombocytopenia -follow repeat - prior trending down to 45 , likely due to consumptive coagulopathy -follow trend # DVT prop - sc heparin # Advance directive - full code
--- NOTE | 2019-10-07 14:53 | P.DS ---
Admission Date: 10/03/19 Discharge Date: 10/07/19 Disposition: ROUTINE DISCHARGE Discharge Condition: FAIR Reason for Admission: painless jaundice Consultations: GI Dr sweat - Problems (1) LFTs abnormal Current Visit: Yes Status: Acute (2) Hyperbilirubinemia Current Visit: Yes Status: Acute (3) Direct hyperbilirubinemia Current Visit: Yes Status: Acute (4) Alcohol abuse Current Visit: Yes Status: Acute Hospital Course: Patient with hx of chronic alcohol abuse admitted for painless jaundiced . He was evaluated by GI and started on Mucomyst after serum acetaminophen level of 5 on day 3 of admission . Patient was observed for alcohol withdrawal but did not have any withdrawal symptoms . He had a negative abdominal CT for mass as well as negative MRCP for gallstones. His LFTS started to trend down but still elevated bilirubin level . He will finish his mucomyst dosage and follow up with GI in 1 week. He was seen by case mgt and and outpatient AA arranged Vital Signs/Physical Exam: Temp Pulse Resp BP Pulse Ox 98.5 F 74 18 121/79 96 10/07/19 14:39 10/07/19 14:39 10/07/19 14:39 10/07/19 14:39 10/07/19 14:39 Laboratory Data at Discharge: WBC 7.6 K/uL (4.3-10.9) D 10/07/19 03:38 Hgb 12.2 g/dL (13.6-17.9) L 10/07/19 03:38 Hct 35.1 % (39.6-49.0) L 10/07/19 03:38 Plt Count 68 K/uL (152-406) L D 10/07/19 03:38 PT 17.2 SECONDS (9.5-12.5) H 10/07/19 03:38 INR 1.48 10/07/19 03:38 APTT 36.5 SECONDS (24.3-36.9) 10/05/19 05:14 Sodium 138 mmol/L (136-145) 10/07/19 03:38 Potassium 3.4 mmol/L (3.5-5.1) L 10/07/19 03:38 BUN 6 mg/dL (7-18) L 10/07/19 03:38 Creatinine 0.75 mg/dL (0.55-1.3) 10/07/19 03:38 Glucose 105 mg/dL (74-106) 10/07/19 03:38 Magnesium 2.1 mg/dL (1.8-2.4) 10/07/19 03:38 Total Bilirubin 9.3 mg/dL (0.2-1.0) H* 10/07/19 03:38 AST 125 U/L (15-37) H 10/07/19 03:38 ALT 78 U/L (12-78) 10/07/19 03:38 Alkaline Phosphatase 204 U/L (45-117) H 10/07/19 03:38 Triglycerides 454 mg/dL (<150) H 10/04/19 05:47 Cholesterol 238 mg/dL (<200) H 10/04/19 05:47 LDL Cholesterol Direct 144 mg/dL (100-129) H 10/04/19 05:47 HDL Cholesterol 15 mg/dL (40-60) L 10/04/19 05:47 Cholesterol/HDL Ratio 15.87 10/04/19 05:47 Lipase 284 U/L (73-393) 10/03/19 17:30 Home Medications: Melatonin 10 mg PO BEDTIME 10/04/19 PARoxetine HCl [Paxil] 30 mg PO DAILY 10/04/19 Acetylcyst [Mucomyst 20%*] 30 ml PO Q4H #6 vial 10/07/19 Folic Acid 1 mg PO DAILY #30 tablet 10/07/19 Losartan Potassium 100 mg PO DAILY #30 tablet 10/07/19 Multivit,Ther Iron,Ca,FA & Min [Centrum Tablet*] 1 tab PO DAILY #30 tab Nicotine [Nicoderm*] 14 mg TD DAILY #7 patch.td24 10/07/19 Thiamine HCl [Vitamin B-1*] 100 mg PO DAILY #30 tablet 10/07/19 New Medications: Acetylcyst [Mucomyst 20%*] 30 ml PO Q4H #6 vial Folic Acid 1 mg PO DAILY #30 tablet Losartan Potassium 100 mg PO DAILY #30 tablet Multivit,Ther Iron,Ca,FA & Min [Centrum Tablet*] 1 tab PO DAILY #30 tab Nicotine [Nicoderm*] 14 mg TD DAILY #7 patch.td24 Thiamine HCl [Vitamin B-1*] 100 mg PO DAILY #30 tablet Patient Discharge Instructions: avoid alcohol Diet: Regular Activity: Ad steven Followup: Piotr Zarate MD [ASSOCIATE-ACTIVE - CAN ADMIT] -
--- NOTE | 2019-10-07 14:53 | CON ---
Date of Consultation: 10/05/2019 Reason For Consultation: Jaundice with thrombocytopenia and anemia. 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 The patient came into the hospital due to jaundice without signi ficant pain. The patient noted to be drinking at least 2 bottles of wine per night. The patient has been in alcohol rehab in the past 2017, with successful remission. However, stress in his life led him back to drinking alcohol again approximately a year ago. It appears he has been unable to deal w ith his stress and resorts to alcoholic drinking. The [facility]'s [facility] discriminant function is 21. 6, is not good criteria. Total bilirubin 7.8, PT of 15.9, INR of 1.36. Sodium 138, creatinine of 0. 95, albumin of 2.4. Tylenol level was slightly elevated at 12.5, was still within normal limits, but still present. The patient does not know where he got the Tylenol. He says he takes NSAIDs only. Past Medical History: Significant for end-stage liver disease secondary to alcoholism, fatty liver d isease secondary to alcoholism, hypertension, insomnia. Home Medications: Include losartan, hydrochlorothiazide, melatonin, and Paxil. Allergies: NKDA. Social History: He is , 1 son, 13 years old. Drinks 2 bottles of wine per night. Positive a lcohol. Tobacco, he initially denied, but chart review reveals he uses 1 can of snuff per day for th e past 10 years. Also, patient reports significant family discord. Does not know his father and ___ his mother and does not speak to her even though she lives in [place]. Family History: The patient's father is alive, no medical history. Mother is alive, but does not kn ow her medical history either. He also notes many of his blood relatives he has been told had alcoho lic issues as well. Review of Systems: The patient has jaundice, but denies any fevers, chills, night sweats, rash, itching, change in bowel habits, black stools, bloody stool, melena. No abdominal pain. He does have dark urine, but did no t report katie-colored stools. The patient denies chest pain, shortness of breath, seizure, syncope, lower extremity edema, muscle a ches, joint aches, backaches. Does have depression with some anxiety. He does report history of hem atochezia within the past year, but had refused colonoscopy, this may be significant with his CT findings and lesions in his liver. Physical Examination: Vital signs: The patient is 5 feet 9 inches, 182 pounds, BMI of 27 kg/meter squared, temperature of 98 degrees Fahrenheit, pulse 91, respirations 16, blood pressure 127/87, O2 saturation 99%. General: He is a well-nourished, well-developed male, lying in bed, in no acute distress, and icteri c both on the skin on top of his head, his eyes, and his frenulum and his tongue. HEENT: Revealed icteric eyes, icteric sclerae. Conjunctivae are clear. Pupils equal, round, and re active to light. Extraocular movements are intact. Oropharynx is clear, but he did have icteric sukhdev nulum under his tongue. Neck: Supple. No masses. Respirations: Clear to auscultation bilaterally. Cardiac: Regular rate and rhythm. Gastrointestinal: Positive bowel sounds. Soft, nontender, nondistended. No hepatosplenomegaly. Extremities: No clubbing, cyanosis, or edema. 2+ pulses. Neuro: Alert and oriented x3. Grossly nonfocal. 5/5 motor strength. Sensation intact to light melia ch. Laboratory Data: The patient has a white count of 6.2, hemoglobin 11.7, down from 14.3 on admission. MCV of 97, platelet count of 45, down from 85, polys 71%, lymphocytes 18%, monocytes 9%, eosinophil s 1%. PT of 15.9, INR of 1.36, PTT of 36.5. The patient has a sodium of 138, potassium 3.2, chlorid e 103, bicarb 31, BUN of 6, creatinine of 0.95, glucose 155. Hemoglobin A1c of 6.3, calcium 8.0, mag nesium 2.0, total bilirubin 7.8 up from 6.5 yesterday, and 6.4 the day before. AST of 230, ALT of 10 0; on admission, the patient had an AST of 357, ALT of 149. The patient has an alkaline phosphatase of 236, on admission was 287. Ammonia 15, which was normal. Total protein 5.8, albumin 2.4, globuli n 3.4, triglycerides of 454, cholesterol of 238, LDL of 144. TSH 3.37. Toxicology negative. Serolo gies pending. Ultrasound of abdomen revealed fatty liver, 5 mm echogenic structure in the gallbladde r, probably a polyp. Followup in a year recommended. Normal common bile duct appears. CT scan reve als normal pancreas. There is pronounced fatty liver. Also, there are numerous round low-density ar eas throughout the liver parenchyma, relatively similar in size , but the size is not exact ly given. The patient has some gallstones that were thought to be 1-2 mm in size near the cystic heather t. The low-density lesions in the liver were thought to be biliary hamartomas disease was another consideration and very small metastatic disease is possible, though less likely. Impression: 1.Acute alcoholic hepatitis with acute liver failure. Maddrey discriminant function is 21.6, as les s than 32 needed to give steroids. Of note, the patient did have a positive Tylenol level though not elevated, normal is 10-30, he is 12.5, but the patient denies ever taking Tylenol, so he must have h ad some exposure that he did not know about in the setting of high alcohol intake, possibly leading t o his liver failure with his bilirubin increasing from the 6 range up to 7.8 today. PT is 15.9, INR of 1.36, PTT 36.5. Sodium 138 with a creatinine of 0.95, albumin of 2.4, AST of 230, ALT of 100, alk marvin phosphatase 236, lipase 284, normal triglycerides at 454, level 12.5. We will start Mucomyst therapy in light of possible Tylenol toxicity because he is several days out now from [facility]. 2.Thrombocytopenia, platelets 45,000. 3.Anemia, hemoglobin of 11.7. 4.Alcohol abuse, rehab stay in 2017. 5.Hematochezia this past year. The patient refused colonoscopy at this point, but in light of findi ngs on CT scan with numerous low-density lesions, we will need to proceed with colonoscopy. The odalis ent does not smoke, however, he does snuff. Therefore, EGD and colonoscopy would be indic ated. 6.CT scan showed fatty liver and numerous small lesions throughout liver. Etiology unclear. Radiol ogist believes this favors benign etiology such as hamartomas, but other things such as metastatic di sease are possible. Recommendation: 1.Mucomyst. 2.Hep-Lock IV. 3.Check for hepatitis panel. 4.Check CEA and alpha fetoprotein. 5.Monitor labs. 6.DT precautions and benzodiazepines p.r.n. 7.Alcoholic anonymous on discharge. 8.Colonoscopy as outpatient after acute hepatitis, liver failure issues have resolved. 9.Hepatitis A and B vaccination. 10.Thiamine and folate therapy. JUDSON/KRYSTAL Voice ID: [id number] Report ID: [id number]
[2019-10-07] MEDS ORDERED: POTASSIUM 25 MEQ EFFERV TAB PO ONE (14:55)
[2019-10-09 02:41] LABS: HBsAG Nonreactive (Nonreactive)
== END 2019-10-07 16:05 | disposition home or self-care (01) | DRG 433 ==
LOC: ER 15:42 → ERHOLD 20:03 → 4TH 21:11
PROVIDERS: ADMIT Internal Medicine; ATTEND Internal Medicine
DX: K70.10 Alcoholic hepatitis without ascites (principal); F10.239 Alcohol dependence with withdrawal, unspecified; E87.6 Hypokalemia; R63.4 Abnormal weight loss; K76.0 Fatty (change of) liver, not elsewhere classified; F17.210 Nicotine dependence, cigarettes, uncomplicated; D69.6 Thrombocytopenia, unspecified; D64.9 Anemia, unspecified; E80.6 Other disorders of bilirubin metabolism; Z68.27 Body mass index [BMI] 27.0-27.9, adult
CPT/HCPCS: 36415; 74170; 74181; 76705; 80048; 80053; 80061; 80074; 80076; 80307; 80329; 82105; 82140; 82248; 82378; 83036; 83690; 83735; 84443; 85025; 85610; 85730; 94760; 96374; 97112; 97116; 97161; 99285; J2405; J3411; J3475; J7030; J7120; Q9967

== ENCOUNTER 2020-05-14 09:43 | Emergency (ER) | payer BC ==
--- NOTE | 2020-05-14 10:36 | RAD REPORT ---
EXAM DESCRIPTION: CT - Head Brain Wo Cont - 05/14/2020 10:24 am CLINICAL HISTORY: double vision;Headache COMPARISON: No comparisons TECHNIQUE: Axial 5 mm thick images of the head were obtained without IV contrast. All CT scans are performed using dose optimization technique as appropriate and may include automated exposure control or mA/KV adjustment according to patient size. FINDINGS: No intracranial hemorrhage, mass, edema or shift of mid-line structures. No acute infarcti on changes seen. No cortical edema or sulcal effacement. No atrophy changes are present and no signif icant chronic ischemic changes seen. Ventricles are normal. Mastoid air cells and visualized portions of the paranasal sinuses are clear. No acute bony findings. IMPRESSION: Negative non-contrast CT head examination for acute intracranial finding.
[2020-05-14] MEDS ORDERED: NA CHLORIDE 0.9% 1,000 ML ONE ×2 (10:43→12:58)
[2020-05-14 10:51] LABS: Absolute Lymphocytes (CBC) 1.7 K/uL (0.7-4.9); Basophils % 0.9 % (0-1.3); Hematocrit 36.6 % (39.6-49.0); MPV 8.9 fL (7.6-11.3); RBC Red Blood Cell Count 4.37 M/uL (4.33-5.43)
[2020-05-14 11:16] LABS: ALT/SGPT 35 U/L (12-78); AST/SGOT 31 U/L (15-37); Albumin 2.7 g/dL (3.4-5.0); Alkaline Phosphatase 191 U/L (45-117); BUN Blood Urea Nitrogen 12 mg/dL (7-18); Bicarbonate 28 mmol/L (21-32); Bilirubin Direct 0.1 mg/dL (0-0.2); Bilirubin Total 0.7 mg/dL (0.2-1.0); Lipase 299 U/L (73-393); Potassium 3.2 mmol/L (3.5-5.1); Protein, Total 6.5 g/dL (6.4-8.2); Sodium Level 131 mmol/L (136-145)
[2020-05-14 11:17] LABS: Glucose Level 566 mg/dL (74-106)
--- NOTE | 2020-05-14 11:57 | EDPHYS ---
Physician Documentation [facility] Name: Jareth Gordon Age: 40 yrs Sex: Male : 1980 Arrival Date: 05/14/2020 Time: 09:45 Bed 4 Private MD: Kim Elizalde K ED Physician Ruel Diaz HPI: 05/14 11:01 This 40 yrs old Male presents to ER via Ambulatory with complaints of High rn Blood Sugar. 11:01 The patient or guardian reports hyperglycemia. Onset: The symptoms/episode rn began/occurred at an unknown time. Current symptoms: In the emergency department the patient's symptoms are unchanged from the initial presentation. The patient has not experienced similar symptoms in the past. Reports sent by pcp for elevated blood sugar, was around 600, told had elevated TG, + double vision for about a week and evaluated by eye doctor without acute findings. Reports mild fatigue and increased urination, but has been drinking a lot of fluid. + posterior headache that comes and goes, not worst headache of his life. . Historical: - Allergies: 10:07 No Known Allergies; iw - Home Meds: 10:07 losartan 100 mg oral tab 1 tab once daily [Active]; amlodipine 2.5 mg tab 1 tab once iw daily [Active]; - PMHx: 10:07 Alcoholism; Anxiety; Depression; Hypertension; iw - PSHx: 10:07 None; iw - Immunization history:: Adult Immunizations unknown. - Social history:: Smoking status: Patient denies any tobacco usage or history of. Patient/guardian denies using alcohol, pt stopped drinking in Sep 2019. - Family history:: not pertinent. - Hospitalizations: : No recent hospitalization is reported. ROS: 11:01 Constitutional: Negative for fever, chills, and weight loss, Eyes: Negative for injury, rn pain, redness, and discharge, Neck: Negative for injury, pain, and swelling, Cardiovascular: Negative for chest pain, palpitations, and edema, Respiratory: Negative for shortness of breath, cough, wheezing, and pleuritic chest pain, Abdomen/GI: Negative for abdominal pain, nausea, vomiting, diarrhea, and constipation, MS/Extremity: Negative for injury and deformity, Skin: Negative for injury, rash, and discoloration, Neuro: Negative for numbness, tingling, and seizure. Exam: 11:01 Constitutional: This is a well developed, well nourished patient who is awake, alert, rn and in no acute distress. Head/Face: Normocephalic, atraumatic. Cardiovascular: Regular rate and rhythm. No pulse deficits. Respiratory: Speaking full sentences. No increased work of breathing, no retractions or nasal flaring. Abdomen/GI: soft, non-tender Skin: Warm, dry MS/ Extremity: Pulses equal, no cyanosis. Neurovascular intact. Full, normal range of motion. Equal circumference. Neuro: Awake and alert, GCS 15, oriented to person, place, time, and situation. Cranial nerves II-XII grossly intact. Motor strength 5/5 in all extremities. Sensory grossly intact. Cerebellar exam normal. Vital Signs: 10:03 BP 138 / 99; Pulse 59; Resp 16 S; Temp 97.2; Pulse Ox 100% on R/A; Weight 75.75 kg; iw Height 5 ft. 9 in. (175.26 cm); Pain 4/10; 10:45 BP 145 / 101; Pulse 65; Resp 19; Pulse Ox 100% ; bp 12:00 BP 150 / 98; Pulse 59; Resp 14; Pulse Ox 99% ; bp 13:00 BP 144 / 99; Pulse 53; Resp 16; Pulse Ox 100% ; bp 10:03 Body Mass Index 24.66 (75.75 kg, 175.26 cm) iw MDM: 09:53 Patient medically screened. rn 11:52 Differential diagnosis: DKA, hyperglycemia, new onset diabetes. Data reviewed: vital rn signs, nurses notes, lab test result(s), radiologic studies, CT scan, and as a result, I will admit patient. Counseling: I had a detailed discussion with the patient and/or guardian regarding: the historical points, exam findings, and any diagnostic results supporting the discharge/admit diagnosis, lab results, radiology results, the need for further work-up and treatment in the hospital. ED course: Pt sent by Dr. Elizalde for admission, will admit to Dr. Marquis. Dr. Marquis contacted, will evaluate patient regarding need for admission, will contact Dr. Elizalde to discuss case and possible outpt management. . 14:42 ED course: Pt evaluated by Dr. Marquis, deemed not to meet inpatient criteria, spoke rn with Dr. Elizalde who agrees for outpt workup, Dr. Marquis has called in prescriptions for insulin and given information on diabetes. . 05/14 10:05 Order name: CBC with Diff; Complete Time: 11: rn 05/14 10:05 Order name: Basic Metabolic Panel; Complete Time: 11: rn 05/14 10:05 Order name: CT Head Brain wo Cont; Complete Time: 10:53 rn 05/14 10:05 Order name: Ketone, Serum; Complete Time: 11: rn 05/14 10:05 Order name: LFT's; Complete Time: 11: rn 05/14 10:05 Order name: Lipase; Complete Time: 11: rn 05/14 10:05 Order name: IV Start; Complete Time: 10:44 rn 05/14 10:05 Order name: Glucose Level; Complete Time: 10:44 rn 05/14 10:05 Order name: EKG; Complete Time: 10: rn 05/14 10:05 Order name: EKG - Nurse/Tech; Complete Time: 10:14 rn Administered Medications: 10:20 Drug: NS 0.9% 1000 ml Route: IV; Rate: 1000 ml; Site: right forearm; bp 12:15 Drug: Insulin Regular Human 10 units {Co-Signature: rb1 (Chelsea Stahl RN).} Route: bp Sub-Q; Site: right upper arm; 12:20 Drug: [place] 5 mg-325 mg 1 tabs Route: PO; bp 13:42 Follow up: Response: Pain is decreased bp 12:58 Drug: Insulin Regular Human 10 units {Co-Signature: rb1 (Chelsea Stahl RN).} Route: bp IVP; Site: right forearm; Disposition: 05/14/20 14:44 Discharged to Home. Impression: Hyperglycemia, unspecified, Diplopia. - Condition is Stable. - Discharge Instructions: Diplopia, Hyperglycemia, Blood Glucose Monitoring, Adult. - Medication Reconciliation Form, Thank You Letter, Antibiotic Education, Prescription Opioid Use form. - Follow up: Kim Elizalde MD; When: As needed; Reason: Recheck today's complaints, Re-evaluation by your physician. - Problem is new. - Symptoms have improved. Signatures: Dispatcher [employer] EDRufina Lim, RN Ruel Willams MD MD rn Peltier, Brian, RN RN bp Chelsea Stahl RN rb1 Corrections: (The following items were deleted from the chart) 14:44 11:57 Hospitalization Ordered by Seb Marquis DO for Observation. Preliminary rn diagnosis is Hyperglycemia, unspecified; Dehydration; Diplopia. Bed requested for Telemetry/MedSurg (observation). Status is Observation. Condition is Stable. Problem is new. Symptoms have improved. rn 15:01 14:44 05/14/2020 14:44 Discharged to Home. Impression: Hyperglycemia, unspecified; iw Diplopia. Condition is Stable. Forms are Medication Reconciliation Form, Thank You Letter, Antibiotic Education, Prescription Opioid Use. Follow up: Kim Elizalde; When: As needed; Reason: Recheck today's complaints, Re-evaluation by your physician. Problem is new. Symptoms have improved. rn
--- NOTE | 2020-05-14 11:57 | ER ---
Nurse's Notes [facility] Name: Jareth Gordon Age: 40 yrs Sex: Male : 1980 Arrival Date: 05/14/2020 Time: 09:45 Bed 4 Private MD: Kim Elizalde K Diagnosis: Hyperglycemia, unspecified;Diplopia Presentation: 05/14 10:03 Chief complaint: Patient states: was sent by Dr. Elizalde for abnormal labs, was told iw his glucose was over 600 and his sodium was low, has been having double vision for a week, right sided headache for 3 days, has been having weakness in his legs for 2 months , denies n/v/d, is not a diabetic. Coronavirus screen: Proceed with normal triage. Patient denies a cough. Patient denies shortness of breath or difficulty breathing. Patient denies measured and/or subjective temperature greater than 100.4F prior to today's visit. Patient denies travel on a cruise ship or to a country the [facility] currently lists as an affected area. Patient denies contact with known and/or suspected case of COVID-19. Ebola Screen: Patient negative for fever greater than or equal to 101.5 degrees Fahrenheit, and additional compatible Ebola Virus Disease symptoms Patient denies exposure to infectious person. Patient denies travel to an Ebola-affected area in the 21 days before illness onset. No symptoms or risks identified at this time. Initial Sepsis Screen: Does the patient meet any 2 criteria? No. Patient's initial sepsis screen is negative. Does the patient have a suspected source of infection? No. Patient's initial sepsis screen is negative. Risk Assessment: Do you want to hurt yourself or someone else? Patient reports no desire to harm self or others. Onset of symptoms was May 07, 2020. 10:03 Method Of Arrival: Ambulatory iw 10:03 Acuity: RICKEY 3 iw Triage Assessment: 10:10 General: Appears in no apparent distress. uncomfortable, Behavior is calm, cooperative, bp appropriate for age. Pain: Complains of pain in head. EENT: No deficits noted. Neuro: No deficits noted. Cardiovascular: Rhythm is sinus rhythm. Respiratory: No deficits noted. GI: No signs and/or symptoms were reported involving the gastrointestinal system. : No signs and/or symptoms were reported regarding the genitourinary system. Derm: No deficits noted. Musculoskeletal: No deficits noted. Historical: - Allergies: 10:07 No Known Allergies; iw - Home Meds: 10:07 losartan 100 mg oral tab 1 tab once daily [Active]; amlodipine 2.5 mg tab 1 tab once iw daily [Active]; - PMHx: 10:07 Alcoholism; Anxiety; Depression; Hypertension; iw - PSHx: 10:07 None; iw - Immunization history:: Adult Immunizations unknown. - Social history:: Smoking status: Patient denies any tobacco usage or history of. Patient/guardian denies using alcohol, pt stopped drinking in Sep 2019. - Family history:: not pertinent. - Hospitalizations: : No recent hospitalization is reported. Screenin:10 Abuse screen: Denies threats or abuse. Denies injuries from another. Nutritional bp screening: No deficits noted. Tuberculosis screening: No symptoms or risk factors identified. Fall Risk None identified. Assessment: 10:10 General: SEE TRIAGE NOTE. bp 10:45 Reassessment: ALL CURRENT ORDERS COMPLETE, VS STABLE. bp 12:00 Reassessment: PT TBA, HOSPITALIST EVAL PENDING. bp 12:59 Reassessment: PT TBDC AFTER INSULIN AND IVF COMPLETION. bp Vital Signs: 10:03 BP 138 / 99; Pulse 59; Resp 16 S; Temp 97.2; Pulse Ox 100% on R/A; Weight 75.75 kg; iw Height 5 ft. 9 in. (175.26 cm); Pain 4/10; 10:45 BP 145 / 101; Pulse 65; Resp 19; Pulse Ox 100% ; bp 12:00 BP 150 / 98; Pulse 59; Resp 14; Pulse Ox 99% ; bp 13:00 BP 144 / 99; Pulse 53; Resp 16; Pulse Ox 100% ; bp 10:03 Body Mass Index 24.66 (75.75 kg, 175.26 cm) iw ED Course: 09:45 Patient arrived in ED. ag5 09:45 Kim Elizalde MD is Private Physician. ag5 09:52 Art Kiser, SAMANTHA is Primary Nurse. bp 09:52 Luc Ramos PA is PHCP. jmm 09:52 Ruel Diaz MD is Attending Physician. jmm 10:06 Triage completed. iw 10:07 Arm band placed on. iw 10:10 Patient has correct armband on for positive identification. Bed in low position. Call bp light in reach. Side rails up X2. 10:20 Inserted saline lock: 20 gauge in right forearm, using aseptic technique. Blood bp collected. 10:24 CT Head Brain wo Cont In Process Unspecified. EDMS 11:54 Seb Marquis DO is Hospitalizing Provider. rn 14:44 Kim Elizalde MD is Referral Physician. rn Administered Medications: 10:20 Drug: NS 0.9% 1000 ml Route: IV; Rate: 1000 ml; Site: right forearm; bp 12:15 Drug: Insulin Regular Human 10 units {Co-Signature: rb1 (Chelsea Stahl RN).} Route: bp Sub-Q; Site: right upper arm; 12:20 Drug: [place] 5 mg-325 mg 1 tabs Route: PO; bp 13:42 Follow up: Response: Pain is decreased bp 12:58 Drug: Insulin Regular Human 10 units {Co-Signature: rb1 (Chelsea Stahl RN).} Route: bp IVP; Site: right forearm; Outcome: 11:57 Decision to Hospitalize by Provider. rn 14:44 Discharge ordered by . rn 15:01 Patient left the ED. iw Signatures: Dispatcher [employer] EDMS Luc Ramos PA PA jmm Williams, Irene RN Ruel Willams MD MD rn Peltier, Brian, RN RN bp Gaskin, Ajare ag5 Chelsea Stahl RN rb1
--- NOTE | 2020-05-14 12:41 | P.CNS ---
Date of Consult: 05/14/20 Reason for Consult: ER evaluation for possible Admission Requesting Physician: Ruel Diaz Primary Care Provider: Dr. Elizalde Chief Complaint: Diplopia History of Present Illness: 40-year-old male with history of hypertension presented to the emergency room with diplopia. He apparently had lab work done yesterday. He was told to go to the ER for further evaluation. Patient denies any significant polyuria. Some polydipsia noted. He denies fever, chills, chest pain, shortness of breath, nausea, vomiting or abdominal pain. He has noted some urine that is frothy. Patient also reports that he was seen by gis mapping technician 2 days ago. Optometry reported no significant abnormality. He came to the ER as recommended by his PCP. In the ER patient was found to have blood sugars at 566. Sodium 131, potassium 3.2, BUN of 12, creatinine 1.5. Acetone negative. Lipase 299. White count 8.7, hemoglobin 12.6. Platelet count 177. CT head unremarkable. Patient given IV fluids and insulin in the emergency room. I was asked to evaluate the patient for possible admission. When I saw the patient ER, he was without significant complaints. Patient appears in no distress. Patient reports poor dietary habits with increase carbohydrates including DrPam lopez, pizza and restaurant food. Allergies No Known Allergies Allergy (Verified 10/03/19 23:27) Home medications list reviewed: Yes Home Medications: Melatonin 10 mg PO BEDTIME 10/04/19 PARoxetine HCl [Paxil] 30 mg PO DAILY 10/04/19 Acetylcyst [Mucomyst 20%*] 30 ml PO Q4H #6 vial 10/07/19 Folic Acid 1 mg PO DAILY #30 tablet 10/07/19 Losartan Potassium 100 mg PO DAILY #30 tablet 10/07/19 Multivit,Ther Iron,Ca,FA & Min [Centrum Tablet*] 1 tab PO DAILY #30 tab 10/07/19 Nicotine [Nicoderm*] 14 mg TD DAILY #7 patch.td24 10/07/19 Thiamine HCl [Vitamin B-1*] 100 mg PO DAILY #30 tablet 10/07/19 - Past Medical/Surgical History Diabetic: No -: Fatty liver -: History of alcohol use -: Hypertension -: Anxiety Past Surgical History: Patient denies surgical history Psychosocial/ Personal History: Patient is . He has 1 child. He works in sales. - Family History Mother Family History: Reviewed- Non-Contributory Notes: pt states Mother is a "heavy drinker" - Social History Smoking Status: Current every day smoker, Never smoker Alcohol use: Yes CD- Drugs: No Caffeine use: No Place of Residence: Home Review of Systems General: As per HPI Eyes: Vision Change, As per HPI ENT: Unremarkable Respiratory: Unremarkable Cardiovascular: Unremarkable Gastrointestinal: Unremarkable Genitourinary: Unremarkable Musculoskeletal: Unremarkable Integumentary: Unremarkable Neurological: Unremarkable Lymphatics: Unremarkable Physical Examination General: Alert, In no apparent distress, Oriented x3, Cooperative HEENT: Atraumatic, Normocephalic, Mucous membr. moist/pink Neck: Supple Respiratory: Clear to auscultation bilaterally, Normal air movement Cardiovascular: Normal pulses, Regular rate/rhythm Gastrointestinal: Normal bowel sounds, Soft and benign, Non-distended, No tenderness, No masses, No rebound, No guarding Musculoskeletal: No erythema, No tenderness, No warmth Integumentary: No tenderness/swelling, No erythema, No warmth, No cyanosis Neurological: Normal speech, Normal strength at 5/5 x4 extr, Normal tone, Normal affect Laboratory Data (last 24 hrs) 05/14/20 10:40: Sodium 131 L, Potassium 3.2 L, BUN 12, Creatinine 1.51 H, Glucose 566 H*, Total Bilirubin 0.7, AST 31, ALT 35, Alkaline Phosphatase 191 H, Lipase 299 05/14/20 10:40: WBC 8.7, Hgb 12.6 L, Hct 36.6 L, Plt Count 177 Conclusions/Impression: Impression: New onset diabetes with hyperglycemia Acute renal insufficiency likely dehydration Hypertension Plan: New onset diabetes with hyperglycemia: Patient was evaluated in the emergency room. Patient does not meet criteria for admission at this time. Patient prefers to go home as well. I will get in contact with his PCP to further address. Patient given 2 L of normal saline and insulin with better blood sugar noted. Lab-A1c will be obtained. Patient has new onset diabetes. No evidence of hyperosmolar nonketotic hyperglycemia or diabetic ketoacidosis. Will recommend to start Levemir solo star pen at 10 units subcu twice daily for better control. Will also provide NovoLog solo star pen with sliding scale to maintain blood sugars. Recommend to monitor blood sugars at least twice daily. He is to keep a log of his blood sugars. Recommend to maintain blood sugar less than 140 fasting and less than 200 after meals. The patient may adjust Levemir by 1-2 units if blood sugars remain above 200. Insulin can be further adjusted by his PCP. Patient was educated on diabetes and diabetic diet. Recommend 2000 ADA diet. Patient willing to eliminate Dr. Lopez and limit restaurant food. Recommend further diabetic teaching with PCP. Will provide education materials. Patient will need to buy a glucometer to monitor blood sugars closely. Will send prescriptions to the pharmacy. I will personally contact PCP to further address and monitor closely. Recommend close follow up within a day to monitor his progress. Spoke with ER at length. He agrees with plan of care. Acute renal insufficiency likely dehydration: Patient given 2 L bolus of normal saline. Recommend to recheck lab-BMP in 1 week. Hypertension: Patient will continue with losartan and Norvasc as directed. Recommend to maintain blood pressure less than 130/80. Further adjustment can be done by PCP. Time Spent Managing Pts care (In Minutes): 45
[2020-05-14] MEDS ORDERED: HYDROCODONE/APAP 5/325 MG TAB ONE (12:57)
[2020-05-14] MEDS ORDERED: INSULIN -REGULAR HUMAN 50 UNIT/0.5 ML ML ONE (12:58)
[2020-05-14 15:08] VITALS: TEMP 97.2
[2020-05-14 15:12] VITALS: BP 144/99; O2SAT 100
--- NOTE | 2020-05-15 06:47 | EKG ---
Test Date: 2020-05-14 Test Time: 10:08:33 Inspector Watch Assembly: DIOGENES MEASUREMENT RESULTS: Intervals: Rate: 59 RI: 154 QRSD: 94 QT: 436 QTc: 431 [place]: P: 59 RI: 154 QRS: 14 T: 7 INTERPRETIVE STATEMENTS: Sinus bradycardia Possible Left atrial enlargement Borderline ECG Compared to ECG 09/15/2017 20:34:20 Sinus rhythm no longer present Electronically Signed On 05-15-20 06:45:42 CDT by Greg Roe
== END 2020-05-14 15:01 | disposition home or self-care (01) ==
LOC: ER 09:43
DX: H53.2 Diplopia (principal); F10.20 Alcohol dependence, uncomplicated; I10 Essential (primary) hypertension; F34.1 Dysthymic disorder
CPT/HCPCS: 93005; 85025; 80048; 36415; 82010; 82947; 80076; 83690; 70450; 96372; 96374; 99284; J7030 ×2